=== PATIENT | male | born 1990 | race Two or more races ===

== ENCOUNTER 2021-02-16 07:51 | Emergency (ER) | payer SELFPAY ==
[~2021-02-16] VITALS: Ht 167.6 cm; Wt 95.3 kg
[2021-02-16 08:28] VITALS: BP 128/77
[2021-02-16] MEDS ORDERED: TETANUS-DIPTH-ACEL PERTUSSIS 0.5ML SYR Tdap IM ONE (09:15)
[2021-02-16] MEDS ORDERED: LIDOCAINE 1% HCL (LOCAL ANESTH.) INJ 20ML MDV IJ ONE (09:15)
== END 2021-02-16 09:49 | disposition home or self-care (01) ==
LOC: ER 07:51
DX: S01.81XA Laceration without foreign body of other part of head, initial encounter (principal); W19.XXXA Unspecified fall, initial encounter; Y93.89 Activity, other specified; Y92.89 Other specified places as the place of occurrence of the external cause; Y99.8 Other external cause status
CPT/HCPCS: 12011; 70450; 90471; 90715; 99284; J2001

== ENCOUNTER 2021-02-26 19:50 | Emergency (ER) | payer SELFPAY ==
[~2021-02-26] VITALS: Ht 170.2 cm; Wt 97.5 kg
[2021-02-26 20:14] VITALS: BP 144/78
== END 2021-02-26 22:01 | disposition home or self-care (01) ==
LOC: ER 19:53
DX: S01.81XD Laceration without foreign body of other part of head, subsequent encounter (principal); X58.XXXD Exposure to other specified factors, subsequent encounter